=== PATIENT | male | born 1960 ===

== ENCOUNTER 2023-01-18 08:30 | Outpatient (RCR) | payer OTHER, SELFPAY | END 2023-01-18 10:30 | LOC: CAR 08:30 | PROVIDERS: PCP Thoracic Surgery (Cardiothoracic Vascular Surgery); Referring Provider Thoracic Surgery (Cardiothoracic Vascular Surgery); Visit Provider Thoracic Surgery (Cardiothoracic Vascular Surgery) | DX: Z95.1 Presence of aortocoronary bypass graft (principal) | CPT/HCPCS: 93798 ==